=== PATIENT | female | born 1940 | race Caucasian/White ===

== ENCOUNTER 2017-12-25 10:31 | Day surgery (SDC) | payer MEDICARE, BC ==
[2017-12-25] MEDS ORDERED: MIDAZOLAM 2 MG/2 ML SOL ONE (11:04)
[2017-12-25] MEDS ORDERED: PROPOFOL 500 MG/50 ML EMU IV ONE (11:04)
[2017-12-25] MEDS ORDERED: FENTANYL 100MCG/2ML SOL ONE (11:04)
[2017-12-25] MEDS ORDERED: BUPIVACAINE LIPOSOME 20 ML SUS ONE (12:07)
[2017-12-25] MEDS: LIDOCAINE HCL 1% MPF SOL ONE ×2 (12:41→12:53)
[2017-12-25 15:08] VITALS: RESP 14
[2017-12-25 15:34] VITALS: BP 159/58; PULSE 54; TEMP 97.9; O2SAT 99
== END 2017-12-25 16:01 | disposition home or self-care (01) | DRG 566 ==
LOC: SURG 10:31
PROVIDERS: ATTEND Podiatrist
DX: M20.11 Hallux valgus (acquired), right foot (principal); M20.41 Other hammer toe(s) (acquired), right foot; M21.611 Bunion of right foot
CPT/HCPCS: J2250; J3010; J2001; J2704

== ENCOUNTER 2018-10-23 11:42 | Day surgery (SDC) | payer MEDICARE, BC | END 2018-10-23 14:07 | disposition home or self-care (01) | LOC: SURG 11:42 ==

== ENCOUNTER 2018-11-13 10:43 | Day surgery (SDC) | payer MEDICARE, BC ==
[2018-11-13] MEDS ORDERED: KETOROLAC 0.5% OPTH 60 DROP SOL ONE (11:35)
[2018-11-13] MEDS ORDERED: KETOROLAC/HOME 0.5% SOL RIGHTEYE ONE ×2 (11:50→11:53)
[2018-11-13] MEDS: PHENYLEPHRINE HCL 10% OPHTHAL SOL ONE ×3 (11:50→11:57)
[2018-11-13] MEDS: TROPICAMIDE 1% OPHTH SOL ONE ×3 (11:50→11:57)
[2018-11-13] MEDS: CYCLOPENTOLATE 1% SOL ONE ×3 (11:50→11:57)
[2018-11-13] MEDS ORDERED: MOXIFLOXACIN-HOME SOL RIGHTEYE ONE ×2 (11:50→11:53)
[2018-11-13] MEDS ORDERED: MOXIFLOXACIN-HOME SOL LEFTEYE ONE ×2 (11:50→11:53)
[2018-11-13] MEDS ORDERED: KETOROLAC/HOME 0.5% SOL LEFTEYE ONE ×3 (11:50→11:58)
[2018-11-13] MEDS ORDERED: MIDAZOLAM 2 MG/2 ML SOL ONE (11:57)
[2018-11-13] MEDS: TETRACAINE HCL 0.5 % 1 DROP SOL ONE ×2 (11:58→12:40)
[2018-11-13] MEDS ORDERED: BSS W/ 0.5 MG P.F. EPI 1 BOTTLE ONE (12:30)
[2018-11-13] MEDS ORDERED: LIDOCAINE HCL 2% MPF 10 ML SOL ONE (12:30)
[2018-11-13] MEDS ORDERED: POVIDONE IODINE 5% SOL ONE (12:30)
[2018-11-13] MEDS ORDERED: ACETAZOLAMIDE 250 MG PO ONE (12:48)
[2018-11-13] MEDS ORDERED: ACETAZOLAMIDE 500 MG CER PO ONE (13:00)
[2018-11-13 13:06] VITALS: BP 132/66; PULSE 78; RESP 18; TEMP 97.6; O2SAT 8
== END 2018-11-13 13:18 | disposition home or self-care (01) | DRG 125 ==
LOC: SURG 10:43
PROVIDERS: ATTEND Ophthalmology
DX: H25.89 Other age-related cataract (principal)
CPT/HCPCS: J2250; A9270-GY

== ENCOUNTER 2019-06-07 11:10 | Emergency (ER) | payer MEDICARE, BC | END 2019-06-07 13:25 | disposition home or self-care (01) | LOC: ED 11:10 ==